=== PATIENT | female | born 1980 | race African-American/Black ===

== ENCOUNTER 2024-01-06 12:22 | Emergency (ER) | payer MEDICAID ==
[~2024-01-06] VITALS: Ht 165.1 cm; Wt 55.0 kg
[2024-01-06 12:27] VITALS: O2SAT 99
[2024-01-06] MEDS: ONDANSETRON HCL 4MG/2ML INJ IV STA (14:10)
[2024-01-06] MEDS: FAMOTIDINE 20MG/2ML VIAL IV STA (14:10)
[2024-01-06] MEDS: SODIUM CHLORIDE 0.9% 1,000 ML IV ONE (14:10)
[2024-01-06 14:24] LABS: PROTHROMBIN TIME 10.9 sec (9.6-11.0)
[2024-01-06 14:28] LABS: BASOPHILS % 0.7 % (0.0-2.0); DIFFERENTIAL COMMENT 0; EOSINOPHILS % 0.1 % (0.0-5.0); HEMATOCRIT. 43.4 % (36.0-48.0); HEMOGLOBIN. 14.7 g/dL (12.0-16.0); LYMPHOCYTES % 8.5 % (20.0-50.0); MEAN CORPUSCULAR HEMOGLOBIN 31.7 pg (28.0-32.0); MEAN CORPUSCULAR HGB CONC 33.9 g/dL (31.0-37.0); MEAN CORPUSCULAR VOLUME 93.5 fL (81.0-99.0); MEAN PLATELET VOLUME 8.5 fl (7.4-10.4); MONOCYTES % 6.4 % (2.0-8.0); NEUTROPHILS % 84.3 % (40.0-76.0); PLATELET 258 x1000/uL (130-400); RED BLOOD CELL COUNT 4.65 mill/uL (4.2-5.4); RED CELL DISTRIBUTION WIDTH 14.4 % (11.6-14.6); WHITE BLOOD COUNT 10.9 x1000/uL (4.5-11.0)
[2024-01-06 14:29] LABS: ALANINE AMINOTRANSFERASE 11 IU/L (10-49); ALBUMIN 5.2 g/dL (3.2-4.8); ASPARTATE AMINOTRANSFERASE 24 IU/L (<34); BILIRUBIN TOTAL 0.4 mg/dL (0.1-1.0); CALCIUM 9.6 mg/dL (8.7-10.4); CARBON DIOXIDE 24 mEq/L (21-32); CHLORIDE 108 mEq/L (98-107); CREATININE 0.9 mg/dL (0.6-1.0); GLUCOSE 96 mg/dL (70-105); PROTEIN TOTAL 8.2 g/dL (6.0-8.3); SODIUM 139 mEq/L (136-145); UREA NITROGEN BLOOD 7 mg/dL (9-23)
[2024-01-06] MEDS: KETOROLAC 15MG/ML VIAL IV ONE (14:29)
[2024-01-06 14:32] LABS: TROPONIN I HIGH SENSITIVITY < 4 ng/L (3.0-34)
[2024-01-06 14:37] LABS: CLARITY URINE CLOUDY (CLEAR); COLOR URINE RED (YELLOW); GLUCOSE URINE NEGATIVE (NEGATIVE); KETONES URINE TRACE (NEGATIVE); LEUKOCYTE ESTERASE URINE 1+ (NEGATIVE); NITRITE URINE NEGATIVE (NEGATIVE); OCCULT BLOOD URINE 3+ (NEGATIVE); PROTEIN URINE 2+ (NEGATIVE); SPECIFIC GRAVITY URINE 1.021 (1.005-1.030); UROBILINOGEN URINE 0.2 E.U./dL (0.2-1.0)
[2024-01-06 14:42] LABS: RBC URINE TNTC /hpf (0-2)
[2024-01-06 14:43] LABS: BACTERIA URINE 4+; SQUAMOUS EPITHELIAL CELL URINE 3+ /lpf (RARE/1+)
[2024-01-06 14:44] LABS: MUCUS URINE 2+ /lpf (< = 2+)
[2024-01-06 15:20] VITALS: BP 114/71; PULSE 60; RESP 16
[2024-01-06 18:22] VITALS: TEMP 98.1
[2024-01-06] MEDS: ACETAMINOPHEN 325MG TABLET PO ONE (18:22)
== END 2024-01-06 18:25 | disposition home or self-care (01) ==
LOC: ER 12:22
DX: N20.0 Calculus of kidney (principal); Z88.0 Allergy status to penicillin
CPT/HCPCS: 80053; 81003; 81025; 83690; 85025; 85610; 84484; 36415; 71045; 74176; 96361; 96374; 96375; 99285; J3490; J1885; J2405; J7030; Z7610 ×4